=== PATIENT | male | born 1965 | race Caucasian/White ===

== ENCOUNTER 2019-07-29 15:11 | Emergency (ER) | payer OTHER, SELFPAY ==
[2019-07-29 15:18] VITALS: BP 144/93; PULSE 104; RESP 20; TEMP 36.6; O2SAT 97
--- NOTE | 2019-07-29 15:30 | ED.URI ---
HPI - URI/Sore Throat General Chief Complaint: Upper Respiratory Infection Stated Complaint: sore throat ears and matting eyes Time Seen by Provider: 07/29/19 15:31 Source: patient and RN notes reviewed History of Present Illness HPI Narrative: Patient is a 53-year-old male that presents the urgent care with complaints of 5-day history of sore throat, eye drainage, bilateral ear otalgia/clogging and low-grade fever. Patient states he also has a productive yellow cough and some intermittent wheezing. Patient denies any shortness of breath. States that he has been using DayQuil and NyQuil with minimal relief. Denies any nausea or vomiting. No other acute complaints. No acute distress noted. Patient aware of the plan of care. Related Data Home Medications Medication Instructions Recorded Confirmed hydrocodone-acetaminophen 1 tablet PO Q12H PRN 07/29/19 07/29/19 Allergies Allergy/AdvReac Type Severity Reaction Status Date / Time No Known Allergies Allergy Verified 07/29/19 15:29 Review of Systems Review of Systems: Narrative: CONSTITUTIONAL: Reports of low-grade fever EYES: Denies visual changes, redness, or discharge. ENT: Reports of sore throat, postnasal drainage, bilateral otalgia CARDIOVASCULAR: Denies chest pain, palpitations, or edema. RESPIRATORY: Reports of cough and wheezing without dyspnea GASTROINTESTINAL: Denies abdominal pain, nausea, vomiting, or diarrhea. GENITOURINARY: Denies dysuria or hematuria. SKIN: Denies rash or itching. MUSCULOSKELETAL: Denies back pain, joint pain, or myalgia. NEUROLOGIC: Denies headache, numbness, or weakness. All other systems reviewed are negative, except as documented in HPI. PMFSH Comments At the time of my signature, I reviewed and agree with the nursing past medical, surgical, social, and family history. There is no relevant family history pertinent to the patient complaint. Exam Narrative: Exam Narrative: GENERAL: This is a well-nourished, well-developed patient, in no apparent distress. HEAD: normocephalic, atraumatic. EYES: PERRL. Sclera clear/white. Vision is grossly intact. EARS: External ears normal, auditory canals clear and without drainage, TMs normal without perforation. Hearing grossly intact. NOSE: External nose normal with no obvious nasal discharge THROAT: Mucous membranes moist, moderate erythema noted posterior oropharynx with moderate postnasal drainage NECK: Neck supple, non-tender mild bilateral submandibular lymphadenopathy CARDIOVASCULAR: Regular rate and rhythm without murmurs, gallops, or rubs. RESPIRATORY: Wheezing throughout SKIN: warm, intact with no suspicious lesions or rash, good texture and turgor. NEURO: awake, alert, and oriented to person, place and time. There were no obvious focal neurologic abnormalities. EXTREMITIES: No clubbing, cyanosis, or edema. Course Vital Signs Vital signs: Vital Signs Temperature 97.8 F 07/29/19 15:18 Pulse Rate 104 H 07/29/19 15:18 Respiratory Rate 20 07/29/19 15:18 Blood Pressure 144/93 H 07/29/19 15:18 Pulse Oximetry 97 07/29/19 15:18 Temperature 97.8 F 07/29/19 15:18 Pulse Rate 104 H 07/29/19 15:18 Respiratory Rate 20 07/29/19 15:18 Blood Pressure 144/93 H 07/29/19 15:18 Pulse Oximetry 97 07/29/19 15:18 Reviewed?patient is informed that they may have pre-hypertension or hypertension based on a blood pressure reading in the department. I recommend the patient call the primary care provider listed on their discharge instructions or a physician of their choice this week to arrange follow-up for further evaluation of possible pre-hypertension or hypertension. MDM - URI/Sore Throat MDM Narrative Medical decision making narrative: Reviewed lab results with the patient. He is aware that he has positive for strep. Advised him to complete antibiotic regimen as prescribed. Make sure to eat and drink with the medication. Complete steroid regimen as prescribed. Use inhaler a
== END 2019-07-29 15:43 | disposition home or self-care (01) ==
PROVIDERS: Emergency Provider Nurse Practitioner Family; PCP Internal Medicine
DX: J40 Bronchitis, not specified as acute or chronic (principal); J02.0 Streptococcal pharyngitis
CPT/HCPCS: 87880; 99203; G0463

== ENCOUNTER 2019-08-21 09:35 | Emergency (ER) | payer OTHER, SELFPAY ==
[2019-08-21 09:42] VITALS: BP 141/93; PULSE 83; RESP 16; TEMP 37.1; O2SAT 98
--- NOTE | 2019-08-21 09:49 | ED.URI ---
HPI - URI/Sore Throat General Chief Complaint: Upper Respiratory Infection Stated Complaint: sore throat and eyes matting Time Seen by Provider: 08/21/19 09:49 Source: patient and RN notes reviewed History of Present Illness HPI Narrative: Patient is a 53-year-old male that presents the urgent care with complaints of a persistent sore throat with some eye drainage as well as bilateral otalgia. Patient was treated for bronchitis and strep on July 28 with amoxicillin and a Medrol Dosepak. Patient states that he took the medication as directed but feels that his sore throat returned rather quickly. Patient denies any known fever, cough, shortness of breath, exposure or any risk for coronavirus. No other acute complaints. No acute distress noted. Patient read the plan of care. Related Data Allergies Allergy/AdvReac Type Severity Reaction Status Date / Time No Known Allergies Allergy Verified 08/21/19 09:50 Review of Systems Review of Systems: Narrative: CONSTITUTIONAL: Denies fever, chills, or sweats. EYES: Denies visual changes, redness; reports of eye drainage ENT: Reports of bilateral otalgia and sore throat CARDIOVASCULAR: Denies chest pain, palpitations, or edema. RESPIRATORY: Denies cough or dyspnea. GASTROINTESTINAL: Denies abdominal pain, nausea, vomiting, or diarrhea. GENITOURINARY: Denies dysuria or hematuria. SKIN: Denies rash or itching. MUSCULOSKELETAL: Denies back pain, joint pain, or myalgia. NEUROLOGIC: Denies headache, numbness, or weakness. All other systems reviewed are negative, except as documented in HPI. PMFSH Comments At the time of my signature, I reviewed and agree with the nursing past medical, surgical, social, and family history. There is no relevant family history pertinent to the patient complaint. Exam Narrative: Exam Narrative: GENERAL: This is a well-nourished, well-developed patient, in no apparent distress. HEAD: normocephalic, atraumatic. EYES: PERRL. Sclera clear/white. Vision is grossly intact. Bilateral clear tearing EARS: External ears normal, auditory canals clear and without drainage, mild fluid behind bilateral TMs without otitis, bilateral TMs normal without perforation. Hearing grossly intact. NOSE: External nose normal with no obvious nasal discharge, nares without redness, no rhinorrhea. THROAT: Mucous membranes moist, moderate erythema to the posterior oropharynx with moderate postnasal drainage. No exudate or ulceration. NECK: Neck supple, non-tender without lymphadenopathy CARDIOVASCULAR: Regular rate and rhythm without murmurs, gallops, or rubs. RESPIRATORY: Clear to auscultation. Breath sounds equal bilaterally. No wheezes, rales, or rhonchi. SKIN: warm, intact with no suspicious lesions or rash, good texture and turgor. NEURO: awake, alert, and oriented to person, place and time. There were no obvious focal neurologic abnormalities. EXTREMITIES: No clubbing, cyanosis, or edema. Course Vital Signs Vital signs: Vital Signs Temperature 98.8 F 08/21/19 09:42 Pulse Rate 83 08/21/19 09:42 Respiratory Rate 16 08/21/19 09:42 Blood Pressure 141/93 H 08/21/19 09:42 Pulse Oximetry 98 08/21/19 09:42 Temperature 98.8 F 08/21/19 09:42 Pulse Rate 83 08/21/19 09:42 Respiratory Rate 16 08/21/19 09:42 Blood Pressure 141/93 H 08/21/19 09:42 Pulse Oximetry 98 08/21/19 09:42 Reviewed?patient is informed that they may have pre-hypertension or hypertension based on a blood pressure reading in the department. I recommend the patient call the primary care provider listed on their discharge instructions or a physician of their choice this week to arrange follow-up for further evaluation of possible pre-hypertension or hypertension. MDM - URI/Sore Throat MDM Narrative Medical decision making narrative: Reviewed labs with the patient. He is aware that strep swab was positive. Advised the patient to complete the antibiotic regimen as prescribed. Make sure to eat a
== END 2019-08-21 10:10 | disposition home or self-care (01) ==
PROVIDERS: Emergency Provider Nurse Practitioner Family; PCP Internal Medicine
DX: J02.0 Streptococcal pharyngitis (principal)
CPT/HCPCS: 87880; 99213; G0463

== ENCOUNTER 2020-05-10 10:36 | Emergency (ER) | payer OTHER, SELFPAY ==
[2020-05-10 10:42] VITALS: BP 144/90; PULSE 83; RESP 16; TEMP 37; O2SAT 95
--- NOTE | 2020-05-10 10:47 | ED.NECK ---
HPI - Neck Pain/Injury General Chief Complaint: Neck Pain/Injury Stated Complaint: pinch nerve Time Seen by Provider: 05/10/20 10:47 Source: patient and RN notes reviewed History of Present Illness HPI Narrative: Patient is a 54-year-old male that presents the urgent care with complaints of left-sided pinched nerve neck pains. Patient states that he has has a history of this in the past and it seemed to resolve on its own. Patient states that this has been ongoing for the last month or so and is worsened most recently. Patient denies of any headaches, blurry vision, radiation of the pain. Denies of any recent trauma, fall or injury to the neck or back. Patient states that he does have a prescription for Flexeril from the past as well as Vicodin, and has not used anything for the pain. Patient states he does remain active. No other acute complaints. No acute distress noted. Patient aware of the plan of care. Some parts of this dictation were generated by voice recognition software and may contain typographical and/or grammatical inaccuracies. Related Data Allergies Allergy/AdvReac Type Severity Reaction Status Date / Time No Known Allergies Allergy Verified 05/10/20 10:55 Review of Systems Review of Systems: Narrative: CONSTITUTIONAL: Denies fever, chills, or sweats. EYES: Denies visual changes, redness, or discharge. ENT: Denies rhinorrhea, congestion, sore throat, or otalgia. CARDIOVASCULAR: Denies chest pain, palpitations, or edema. RESPIRATORY: Denies cough or dyspnea. GASTROINTESTINAL: Denies abdominal pain, nausea, vomiting, or diarrhea. GENITOURINARY: Denies dysuria or hematuria. SKIN: Denies rash or itching. MUSCULOSKELETAL: Denies back pain, joint pain, or myalgia. Reports of left-sided neck pain NEUROLOGIC: Denies headache, numbness, or weakness. All other systems reviewed are negative, except as documented in HPI. PMFSH Comments At the time of my signature, I reviewed and agree with the nursing past medical, surgical, social, and family history. There is no relevant family history pertinent to the patient complaint. Exam Narrative: Exam Narrative: GENERAL: This is a well-nourished, well-developed patient, in no apparent distress. HEAD: normocephalic, atraumatic. EYES: PERRL. Sclera clear/white. Vision is grossly intact. EARS: External ears normal NOSE: External nose normal with no obvious nasal discharge, nares without redness, no rhinorrhea. THROAT: Mucous membranes moist NECK: Neck supple, mild left cervical tenderness; chin tuck, head tilt, left/right flexion exercises because of mild pain, more notable with left flexion. SKIN: warm, intact with no suspicious lesions or rash, good texture and turgor. NEURO: awake, alert, and oriented to person, place and time. There were no obvious focal neurologic abnormalities. EXTREMITIES: No clubbing, cyanosis, or edema. Range of motion to left upper extremity within normal limits. Course Vital Signs Vital signs: Vital Signs Temperature 98.6 F 05/10/20 10:42 Pulse Rate 83 05/10/20 10:42 Respiratory Rate 16 05/10/20 10:42 Blood Pressure 144/90 H 05/10/20 10:42 Pulse Oximetry 95 05/10/20 10:42 Temperature 98.6 F 05/10/20 10:42 Pulse Rate 83 05/10/20 10:42 Respiratory Rate 16 05/10/20 10:42 Blood Pressure 144/90 H 05/10/20 10:42 Pulse Oximetry 95 05/10/20 10:42 Reviewed-patient is informed that they may have pre-hypertension or hypertension based on a blood pressure reading in the department. I recommend the patient call the primary care provider listed on their discharge instructions or a physician of their choice this week to arrange follow-up for further evaluation of possible pre-hypertension or hypertension. MDM - Neck Pain/Injury MDM Narrative Medical decision making narrative: Advised the patient to complete the steroid regimen as prescribed. Use Flexeril as needed. Be aware that the Flexeril will cause drowsiness and you should
== END 2020-05-10 11:04 | disposition home or self-care (01) ==
PROVIDERS: Emergency Provider Nurse Practitioner Family; PCP Internal Medicine
DX: S16.1XXA Strain of muscle, fascia and tendon at neck level, initial encounter (principal); X58.XXXA Exposure to other specified factors, initial encounter
CPT/HCPCS: 99213; G0463

== ENCOUNTER 2020-05-25 09:15 | Emergency (ER) | payer OTHER, SELFPAY ==
--- NOTE | ~2020-05-25 | CT_ITS ---
EXAMINATION: CT cervical spine wo con DATE: 05/25/2020 10:44 INDICATION: Neck pain TECHNIQUE: Computed tomography (CT) of the cervical spine was performed without intravenous contrast. Automated exposure control and iterative reconstruction technique were employed. The dose-length pro duct was 408.23 mGy-cm. COMPARISON: None FINDINGS: Draining of the normal cervical lordosis. Vertebral body heights are normal. No fracture. Moderate di sc height loss at C5-C6 and C6-C7 with mild disc height loss at C2-C3 and C4-C5. Cervical soft tissue s are unremarkable aside from minimal atherosclerotic calcific a cyst at the right carotid bulb. Midd le ear cavities and visualized portions of the paranasal sinuses, mastoid air cells and airway are cl ear. Moderate emphysematous changes at the apices of the lungs. The following disc levels are specifi chelsea discussed: C2-C3: Disc is bulging. There is mild left and moderate right uncovertebral joint osteoarthritis. The re is mild left and severe right facet joint osteoarthritis. There is mild left and mild to moderate right neural foraminal stenosis. There is mild central canal stenosis. C3-C4: Disc is mildly bulging. There is mild bilateral uncovertebral joint osteoarthritis. There is m oderate right and severe left facet joint osteoarthritis. There is mild right and moderate left neura l foraminal stenosis. There is no central canal stenosis. C4-C5: Disc is mildly bulging. There is mild right and mild to moderate left uncovertebral joint oste oarthritis. There is mild bilateral facet joint osteoarthritis. There is mild left neural foraminal s tenosis. There is mild central canal stenosis. C5-C6: Posterior disc osteophyte complex. There is severe bilateral uncovertebral joint osteoarthriti s. There is mild bilateral facet joint osteoarthritis. There is moderate left and mild to moderate ri ght neural foraminal stenosis. There is mild central canal stenosis. C6-C7: Posterior disc osteophyte complex. There is severe left and moderate right uncovertebral joint osteoarthritis. There is mild bilateral facet joint osteoarthritis. There is moderate left and mild to moderate right neural foraminal stenosis. There is mild central canal stenosis. C7-T1: The disc does not extend beyond the endplate margin. There is mild left uncovertebral joint os teoarthritis. There is mild bilateral facet joint osteoarthritis. There is no neural foraminal stenos is. There is no central canal stenosis. IMPRESSION: 1. Moderate cervical spondylosis. No acute osseous abnormality. 2. Moderate emphysematous changes at the bilateral apices of the lungs. Reviewed, dictated and finalized at location A. GER CONSUMER
[2020-05-25 09:19] VITALS: BP 144/116; PULSE 107; RESP 12; TEMP 36.6; O2SAT 100
[2020-05-25 09:31] VITALS: BP 138/93; PULSE 85; RESP 10; O2SAT 94
--- NOTE | 2020-05-25 09:58 | ED.NECK ---
HPI - Neck Pain/Injury General Chief Complaint: Neck Pain/Injury Stated Complaint: neck pain Time Seen by Provider: 05/25/20 09:57 Source: patient Mode of arrival: ambulatory Limitations: no limitations History of Present Illness HPI Narrative: Patient is a 54-year-old male who presents complaining of left neck pain x1 and half months. He denies injury. He reports being seen at urgent care approximately 2 weeks ago and given a steroid Dosepak as well as Flexeril and diagnosed with musculoskeletal pain. He reports pain continues and has increased over the past few days. Patient tearful. He reports increased pain with movement. He denies numbness or tingling to extremities or headache. He denies chest pain. He reports a history of L2 compression fracture from fall last year. He denies taking [id number] medications for pain at this time. MD complaint: neck pain Related Data Allergies Allergy/AdvReac Type Severity Reaction Status Date / Time No Known Allergies Allergy Verified 05/25/20 09:24 Review of Systems Review of Systems: Narrative: CONSTITUTIONAL: Denies fever, chills, or sweats. EYES: Denies visual changes, redness, or discharge. ENT: Denies rhinorrhea, congestion, sore throat, or otalgia. CARDIOVASCULAR: Denies chest pain, palpitations, or edema. RESPIRATORY: Denies cough or dyspnea. GASTROINTESTINAL: Denies abdominal pain, nausea, vomiting, or diarrhea. GENITOURINARY: Denies dysuria or hematuria. SKIN: Denies rash or itching. MUSCULOSKELETAL: Reports left sided neck pain NEUROLOGIC: Denies headache, numbness, dizziness, or weakness. PSYCHIATRIC: Denies anxiety or depression. [facility] Past Medical History Medical History (Updated 05/25/20 @ 11:20 by MELISSA Garsia) Compression fracture COPD (chronic obstructive pulmonary disease) Surgical History Surgical History (Updated 05/25/20 @ 10:26 by MELISSA Garsia) No significant past surgical history Family History Family History (Updated 05/25/20 @ 10:27 by MELISSA Garsia) Other No significant family history Social History Social History (Updated 05/25/20 @ 10:27 by MELISSA Garsia) Smoking status: Current every day smoker Tobacco type: cigarettes Alcohol intake: current Alcohol use details: Occasional Substance use: current Substance use type: marijuana Other substance usage details: Occasional use Living arrangements: with family Gender identity (if verbalized by the patient): Male Exam Narrative: Exam Narrative: GENERAL: Well-appearing, well-nourished, and in no acute distress. Patient tearful. HEAD: Normocephalic, atraumatic. EYES: EOMI. No redness or drainage. Conjunctiva are normal. ENT: Mucous membranes pink and moist. NECK: AROM. Supple. No lymphadenopathy or mass. Tenderness with palpation left posterior neck CHEST: No respiratory distress. EXTREMITIES: Normal range of motion. SKIN: Warm, dry, no rash. NEURO: No focal deficits. Alert and oriented x3. Gait steady. PSYCH: Normal affect. No signs of depression or anxiety. Course Vital Signs Vital signs: Vital Signs Temperature 36.6 C 05/25/20 09:19 Pulse Rate 107 H 05/25/20 09:19 Respiratory Rate 12 05/25/20 09:19 Blood Pressure 144/116 H 05/25/20 09:19 Pulse Oximetry 100 05/25/20 09:19 Temperature 36.6 C 05/25/20 09:19 Pulse Rate 90 05/25/20 10:18 Respiratory Rate 18 05/25/20 10:18 Blood Pressure 118/87 05/25/20 10:18 Pulse Oximetry 95 05/25/20 10:18 MDM - Neck Pain/Injury MDM Narrative Medical decision making narrative: Patient's x-ray shows some bulging disc neck along with osteoarthritis. Discussed with patient starting on NSAIDs, muscle relaxants and follow-up with PCP for further referrals. Discussed with patient any changes such as numbness or tingling in extremities and the need to return Differential Diagnosis Differential diagnosis: Likely disc disorder of cervical david
[2020-05-25 10:18] VITALS: BP 118/87; PULSE 90; RESP 18; O2SAT 95
[2020-05-25] MEDS: diazePAM INJ (*CRX) 10 MG/2 ML SYRINGE 5 MG IM (10:19)
[2020-05-25] MEDS: KETOROLAC (*BKC) 60 MG/2 ML VIAL IM (10:19)
--- NOTE | 2020-05-25 10:50 | PC.NURSE ---
Pt to CT scan via stretcher.
[2020-05-25 11:31] VITALS: BP 134/95; PULSE 75; RESP 15; O2SAT 95
== END 2020-05-25 11:32 | disposition home or self-care (01) ==
PROVIDERS: Emergency Provider Nurse Practitioner; PCP Internal Medicine
DX: M47.22 Other spondylosis with radiculopathy, cervical region (principal); J44.9 Chronic obstructive pulmonary disease, unspecified; F17.210 Nicotine dependence, cigarettes, uncomplicated
CPT/HCPCS: 72125; 96372; 99284; J1885; J3360

== ENCOUNTER 2021-03-16 13:18 | Outpatient (CLI) | payer OTHER, SELFPAY ==
--- NOTE | ~2021-03-16 | XR_ITS ---
EXAMINATION: XR chest 2V EXAM DATE: 03/16/2021 13:36 INDICATION: Chronic cough. TECHNIQUE: Frontal and lateral projections of the chest obtained and reviewed. There is no prior muriel dy for comparison. FINDINGS: There is prominence of peripheral reticulation, appearance is most consistent with interst itial lung disease. No confluent consolidation, pneumothorax or pleural effusion suspected. Cardiome diastinal silhouette is normal. Mild thoracic spondylosis. IMPRESSION: Suspicion of moderate interstitial lung disease. Consider HRCT (without contrast). Reviewed, dictated and finalized at location B. IMPRESSION: Suspicion of moderate interstitial lung disease. Consider HRCT (wi thout contrast).
== END 2021-03-16 13:19 | disposition home or self-care (01) ==
LOC: ANHIMG 13:23
PROVIDERS: PCP Internal Medicine; Visit Provider Internal Medicine
DX: R05.3 Chronic cough (principal); R91.8 Other nonspecific abnormal finding of lung field
CPT/HCPCS: 71046

== ENCOUNTER 2021-03-31 09:52 | Outpatient (CLI) | payer OTHER, SELFPAY ==
--- NOTE | ~2021-03-31 | CT_ITS ---
EXAMINATION: CT diagnostic chest wo con DATE: 03/31/2021 10:12 INDICATION: Cough, smoker TECHNIQUE: Computed tomography (CT) of the chest was performed without intravenous contrast. The dose -length product (DLP) was 230.15 mGy-cm. Automated exposure control and iterative reconstruction tech nique were employed. COMPARISON: None FINDINGS: There is moderate emphysema. There are subpleural reticular and groundglass opacities. The lungs are free acute opacities. There is no pleural effusion or pneumothorax. No pathologically enlar ged thoracic lymph nodes are identified. The heart size is normal. Calcified coronary artery atherosc lerosis is noted. Subendocardial fat deposition in the left ventricular apex is consistent with prior myocardial infarction. There is a 3 mm nonobstructing stone of the left kidney. There is mild thorac ic spondylosis. IMPRESSION: 1. Emphysema with possible chronic interstitial lung disease in a pattern of nonspecific interstitial pneumonia (NSIP). 2. Findings consistent with prior myocardial infarction. Reviewed, dictated and finalized at location B. 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 Emphysema with possible chronic interstitial lung disease in a pattern of no nspecific interstitial pneumonia (NSIP). 2. Findings consistent with prior myocardial infarction.
== END 2021-03-31 09:53 | disposition home or self-care (01) ==
LOC: ANHIMG 09:55
PROVIDERS: PCP Internal Medicine; Visit Provider Internal Medicine
DX: R05.3 Chronic cough (principal); J43.9 Emphysema, unspecified
CPT/HCPCS: 71250

== ENCOUNTER 2021-06-17 21:12 | Emergency (ER) | payer OTHER, SELFPAY ==
[2021-06-17] VITALS (8 sets, daily range): BP systolic 82–132; BP diastolic 64–88; PULSE 83–96; RESP 14–25; TEMP 36.3–36.9; O2SAT 97–100
--- NOTE | ~2021-06-17 | XR_ITS ---
XR shoulder LT min 2V DATE: 06/17/2021 22:40 INDICATION: Reduction of shoulder dislocation TECHNIQUE: Portable near and AP views COMPARISON: 06/17/2021 left shoulder pre-reduction examination FINDINGS: There is reduction of the anterior dislocation of the left glenohumeral joint. No fracture is evident. Normal alignment at the acromion clavicular joint. IMPRESSION: Reduction of anterior glenohumeral dislocation Reviewed, dictated and finalized at location A. [employer]
--- NOTE | ~2021-06-17 | XR_ITS ---
XR shoulder LT min 2V DATE: 06/17/2021 22:13 INDICATION: Left shoulder pain following fall today TECHNIQUE: Neer and AP views COMPARISON: None FINDINGS: There is anterior dislocation with humeral head in subcoracoid position. Normal alignment at the acromioclavicular joint. No fracture is evident. IMPRESSION: Anterior dislocation at left glenohumeral joint Reviewed, dictated and finalized at location A. [employer]
--- NOTE | 2021-06-17 22:18 | ED.GENADULT ---
HPI - General Adult General Chief complaint: Extremity Injury, Upper Stated complaint: possible left shoulder dislocation Time Seen by Provider: 06/17/21 21:56 History of Present Illness HPI narrative: Patient is a 55-year-old gentleman who presents the emergency department with chief complaint of left shoulder pain. The patient reports he had a ground-level fall this evening and reports pain in his left shoulder patient reports he is unable to move his shoulder afterwards and feels as though his shoulder is dislocated. Related Data Allergies Allergy/AdvReac Type Severity Reaction Status Date / Time No Known Allergies Allergy Verified 05/25/20 09:24 Review of Systems Review of Systems: A 10 system review of systems was completed on the patient and is negative except for what is stated in the HPI. Nursing and ancillary documentation was reviewed. [facility] Past Medical History Medical History Compression fracture COPD (chronic obstructive pulmonary disease) Surgical History Surgical History No significant past surgical history Family History Family History Other No significant family history Social History Social History Smoking status: Current every day smoker Tobacco type: cigarettes Alcohol intake: current Alcohol use details: Occasional Substance use: current Substance use type: marijuana Other substance usage details: Occasional use Gender identity (if verbalized by the patient): Male Exam Narrative: GENERAL: Well-appearing, well-nourished, and in no acute distress. HEAD: Normocephalic, atraumatic. EYES: PERRLA and EOMI. ENT: Nares clear, no rhinorrhea or epistaxis. Mucous membranes moist. NECK: Supple. CHEST: Clear to auscultation. No respiratory distress. HEART: Regular rate and rhythm. No murmur heard. Normal peripheral pulses. ABDOMEN: Soft, nontender, nondistended, normal active bowel sounds. EXTREMITIES: Normal range of motion. No edema. Decreased range of motion of left shoulder and obvious anterior shoulder dislocation SKIN: Warm, dry, no rash. NEURO: No focal deficits. Alert and oriented x3. PSYCH: Normal mood and affect. Course Vital Signs Vital signs: Vital Signs Temperature 36.9 C 06/17/21 21:17 Pulse Rate 83 06/17/21 21:17 Respiratory Rate 18 06/17/21 21:17 Blood Pressure 82/64 L 06/17/21 21:17 Pulse Oximetry 100 06/17/21 21:17 Temperature 36.4 C 06/17/21 22:34 Pulse Rate 96 06/17/21 23:16 Respiratory Rate 20 06/17/21 23:16 Blood Pressure 125/84 06/17/21 23:16 Pulse Oximetry 97 06/17/21 23:16 Procedures Orthopedic Joint Reduction Joint #1: Orthopedic Joint Reduction Date: 06/17/21 Orthopedic Joint Reduction Time: 22:45 Time Out Performed: Yes Side: left Joint Reduction Location: shoulder Analgesia: procedural sedation Pre-Procedure Neuro Vascular Exam: normal Shoulder Technique Used (if applicable): external rotation Post-reduction neuro exam: intact Post-reduction vascular: intact Post Reduction X-Ray Obtained: Yes Post Reduction X-Ray Results: reduced Splint Applied: Yes Patient Tolerated Procedure: well and no complications Additional Comments: shoulder immobilizer applied Procedural Sedation Procedural Sedation #1: Procedural Sedation Date: 06/17/21 Procedural Sedation Time: 22:18 Presedation Evaluation: Patient is awake alert no acute distress only abnormality is left shoulder dislocation. Procedure: Close reduction of left shoulder dislocation Provider Performed: sedation and procedure Time Out: 7212 Informed Consent Obtained: yes E
--- NOTE | 2021-06-17 22:23 | PC.NURSE ---
time out for moderate sedation done [address] olvera
--- NOTE | 2021-06-17 22:29 | PC.NURSE ---
25 mcg fentanyl given 2228 80 propofol given 2228 2228 Pulse: 86, O2: 100, RR: 22, BP: 102/73, CO2: 36 2233 Pulse: 94, O2: 97, RR: 22, BP: 112/83 , CO2: 38
== END 2021-06-17 23:45 | disposition home or self-care (01) ==
PROVIDERS: Emergency Provider Emergency Medicine; PCP Internal Medicine
DX: S43.015A Anterior dislocation of left humerus, initial encounter (principal); J44.9 Chronic obstructive pulmonary disease, unspecified; F17.210 Nicotine dependence, cigarettes, uncomplicated; W18.30XA Fall on same level, unspecified, initial encounter
CPT/HCPCS: 23650; 73030; 99285; J2704; J3010

== ENCOUNTER 2021-08-11 17:11 | Outpatient (CLI) | payer OTHER, SELFPAY ==
--- NOTE | ~2021-08-11 | MR_ITS ---
EXAMINATION: MR shoulder LT wo con DATE: 08/11/2021 17:55 INDICATION: Left shoulder pain TECHNIQUE: Magnetic resonance imaging (MRI) of the left shoulder was performed without intravenous co ntrast. Sequences included axial PD-weighted FS FSE, coronal oblique PD-weighted FS FSE, coronal obli que T2-weighted FS FSE, sagittal PD-weighted FS FSE, and sagittal T1-weighted SE. COMPARISON: Left shoulder radiograph dated 06/17/2021 FINDINGS: Coracoacromial arch: The acromion undersurface is curved in morphology (type II). The coracoacromial ligament is normal. M ild acromioclavicular osteoarthritis. Rotator cuff: Moderate supraspinatus and mild infraspinatus tendinopathy. Intrasubstance tear extending 7 mm AP godfrey ng the superior facet footplate of the supraspinatus tendon which appears to involve up to one half o f the tendon thickness. Additional intrasubstance tear extending for millimeters AP along the middle facet footplate of the infraspinatus tendon which involves no greater than one third of the tendon th ickness. The teres minor tendon is normal. Mild subscapularis tendinopathy with small articular sided tear along a 3 x 4 mm region of the superomedial aspect of the lesser tuberosity footplate. Normal r otator cuff muscle bulk and signal. Biceps tendon, glenoid labrum and glenohumeral cartilage: Mild tendinopathy at the glenoid insertion of the otherwise normal long head biceps tendon. Diffuse t ear of the glenoid labrum. This includes an osseous Bankart fracture with impaction subtle depression of an approximately 1.2 cm length of the anteroinferior rim of the glenoid with increased signal sug gesting associated chondral injury at the anteroinferior glenoid. Glenohumeral osteoarthritis with mi ld partial-thickness cartilage loss along the cephalad two thirds of the glenoid and inferomedial asp ect of the humeral head. Small marginal osteophytes at the 3:00 position of the glenoid. Fluid: Physiologic amount of fluid in the glenohumeral joint and biceps tendon sheath. No loose osteochondr al bodies. Small amount of fluid in the subacromial/subdeltoid and subcoracoid bursae consistent with mild bursitis. Bones, other: In addition to the nose noted Bankart impaction fracture along the anteroinferior glenoid there is a corresponding small Hill-Sachs fracture trough with surrounding edema at the posterior superior later al humeral head. Bone marrow signal is otherwise unremarkable. Mild cystic change at the superior fac et of the greater tuberosity. There is thickening of the capsule at the axillary recess along with th ickening of the structures of the biceps carmita sling with increased soft tissue density replacing th e normal fat signal at the rotator cuff interval. As can be seen with adhesive capsulitis however giv en the relatively recent anterior glenohumeral dislocation this could also represent scarring related to prior partial tears. IMPRESSION: 1. Recent health sacs fracture trough and associated Bankart lesion with impaction fracture along the anteroinferior glenoid consistent with recent prior anterior glenohumeral dislocation. 2. Mild glenohumeral osteoarthritis with more diffuse labral tear likely pre-existing the dislocation . 3. Moderate supraspinatus tendinopathy with small moderate severity intrasubstance tear along the sup raspinatus footplate 4. Mild infraspinatus tendinopathy with additional separate small mild intrasubstance tear along the middle facet footplate. 5. Mild subscapularis tendinopathy with small articular sided tear at the superomedial aspect of the lesser tuberosity footplate. 6. Mild subacromial/subdeltoid and subcoracoid bursitis. Reviewed, dictated and finalized at location A. IMPRESSION: 1. Recent health sacs
== END 2021-08-11 17:12 | disposition home or self-care (01) ==
LOC: ANHIMG 17:12
PROVIDERS: PCP Internal Medicine; Visit Provider Nurse Practitioner Adult Health
DX: M75.52 Bursitis of left shoulder (principal); M19.012 Primary osteoarthritis, left shoulder
CPT/HCPCS: 73221

== ENCOUNTER 2023-08-16 12:42 | Emergency (ER) | payer OTHER, SELFPAY ==
[2023-08-16 12:54] VITALS: BP 112/68; PULSE 109; RESP 18; TEMP 36.6; O2SAT 97
--- NOTE | 2023-08-16 13:23 | ED.URI ---
HPI - URI/Sore Throat General Chief Complaint: Upper Respiratory Infection Stated Complaint: throat / doing chemo Time Seen by Provider: 08/16/23 13:23 Source: patient, RN notes reviewed and old records reviewed Mode of arrival: ambulatory Limitations: no limitations History of Present Illness HPI Narrative: 57-year-old male to [facility] with complaint of sore throat and cough for 4 days. Patient endorses history of lung cancer and currently undergoing treatment. Patient states he underwent treatment 7 days ago and that he had a similar reaction with his 1st treatment. Patient states he called his oncologist this morning to request antibiotics and was advised to be seen in an urgent care. patient denies fever, shortness of breath, chest pain. On exam patient in no acute distress. Respirations even and nonlabored. Able to speak in full sentences. Patient endorses that he is able to tolerate fluids by mouth. Related Data Home Medications Medication Instructions Recorded Confirmed aspirin 81 mg capsule 81 mg PO DAILY 08/16/23 08/16/23 atorvastatin 40 mg tablet 40 mg PO DAILY 08/16/23 08/16/23 folic acid 1 mg tablet 1 mg PO DAILY 08/16/23 08/16/23 metoprolol succinate 25 mg 25 mg PO DAILY 08/16/23 08/16/23 tablet,extended release 24 hr valsartan 160 mg tablet 160 mg PO DAILY 08/16/23 08/16/23 Allergies Allergy/AdvReac Type Severity Reaction Status Date / Time No Known Allergies Allergy Verified 08/16/23 12:54 Review of Systems Review of Systems: All systems reviewed & are unremarkable except as noted in HPI and below Constitutional: Constitutional: Reports no additional constitutional complaints Eyes: Eyes: Reports no additional eye complaints ENT: Reports as per HPI and Reports sore throat Cardiovascular: Cardiovascular: Reports no additional cardiovascular complaints, Denies chest pain and Denies dyspnea Respiratory: Respiratory: Reports no additional respiratory complaints, Reports cough, Denies excessive phlegm production, Denies dyspnea and Denies wheezing Musculoskeletal: Musculoskeletal: Reports no additional musculoskeletal complaints Neurologic: Reports system reviewed and no additional complaints, except as documented Psychiatric: Psychiatric: Reports no additional psychiatric complaints [facility] Past Medical History Medical History Compression fracture COPD (chronic obstructive pulmonary disease) Surgical History Surgical History No significant past surgical history Family History Family History Other No significant family history Social History Social History Smoking status: Current every day smoker Tobacco type: cigarettes Alcohol intake: current Alcohol use details: Occasional Substance use: current Substance use type: marijuana Other substance usage details: Occasional use Living arrangements: with family Gender identity (if verbalized by the patient): Male Comments At the time of my signature, I reviewed and agree with the nursing past medical, surgical, social, and family history. There is no relevant family history pertinent to the patient complaint. Exam Const: General: cooperative, healthy appearing, comfortable, no acute distress, alert and well nourished Nutritional Appearance: well nourished Orientation/consciousness: patient oriented x3 Limitations: no limitations HENMT: Head: normal to inspection Ears: external ears normal and TM's normal bilaterally Face/Nose/Sinus: Normal external nose present, Normal nares present, normal facial exam, No erythema and No edema Face and sinus: normal facial exam, no erythema and no edema Mouth: Yes Normal oral and palatal mucosa present Throat: tonsils normal, uvu
== END 2023-08-16 15:30 | disposition home or self-care (01) ==
PROVIDERS: Emergency Provider Nurse Practitioner Family; PCP Internal Medicine
DX: J06.9 Acute upper respiratory infection, unspecified (principal); Z20.822 Contact with and (suspected) exposure to COVID-19; C34.90 Malignant neoplasm of unspecified part of unspecified bronchus or lung; Z79.60 Long term (current) use of unspecified immunomodulators and immunosuppressants; F17.210 Nicotine dependence, cigarettes, uncomplicated; F12.90 Cannabis use, unspecified, uncomplicated; J44.9 Chronic obstructive pulmonary disease, unspecified; Z79.82 Long term (current) use of aspirin
CPT/HCPCS: 87081; 87426; 87804; 87880; 99213; G0463